=== PATIENT | male | born 1990 | race Caucasian/White ===

== ENCOUNTER 2016-09-28 10:53 | Emergency (ER) | payer SELFPAY ==
[~2016-09-28] VITALS: Ht 182.9 cm; Wt 61.0 kg
[~2016-09-28 10:53] MED LIST: OXYC-360 PO; Z.0.NO CURRENT MEDS
[2016-09-28 10:59] VITALS: BP 148/74; PULSE 67; RESP 16; TEMP 97.8; O2SAT 99
--- NOTE | 2016-09-28 11:34 | PD ---
HPI Chief Complaint: Musculoskeletal Complaint Time Seen by Provider: 11:20 Travel History International Travel<30 days: No Contact w/Intl Traveler<30days: No Traveled to known affect area: No History of Present Illness HPI 25-year-old male presents to the emergency room for evaluation of right-sided, anterior rib pain for the past 5 days. Patient states he and his just moved and he has been lifting multiple heavy boxes and furniture. He cannot remember any specific trauma or injury. Pain is worsened with any movement or deep breathing. Patient took Aleve this morning for her symptoms without significant relief. He has associated cough. He denies any other upper respiratory symptoms. Denies abdominal pain. PFSH Past Medical History Medical History: Denies Significant Hx Asthma: No Cardiomyopathy: No Tetanus Vaccination: > 5 Years Influenza Vaccination: No Past Surgical History Surgical History: No Previous Surgery Mastectomy: No Social History Alcohol Use: No Tobacco Use: Yes (1ppd) Substance Use: No Allergies-Medications (Allergen,Severity, Reaction): Coded Allergies: No Known Allergies (Verified , 09/28/16) Reported Meds & Prescriptions Reported Meds & Active Scripts Active Ibuprofen 600 Mg Tab 600 Mg PO Q8HR PRN Review of Systems Except as stated in HPI: all other systems reviewed are Neg Physical Exam Narrative GENERAL: Well-nourished, well-developed male in no acute distress. Afebrile. Ambulatory. SKIN: Focused skin assessment warm/dry. No erythema or ecchymosis. HEAD: Normocephalic. EYES: No scleral icterus. No injection or drainage. NECK: Supple, trachea midline. No JVD or lymphadenopathy. CARDIOVASCULAR: Regular rate and rhythm without murmurs, gallops, or rubs. RESPIRATORY: Breath sounds equal bilaterally. No accessory muscle use. CHEST: No obvious deformity or crepitus. No retractions or use of accessory muscles. Tenderness to palpation of rib #8. Data Data Last Documented VS Vital Signs Date Time Temp Pulse Resp B/P Pulse Ox O2 Delivery O2 Flow Rate FiO2 09/28/16 10:59 97.8 67 16 148/74 99 Orders Ribs, Uni (W/Exp Cxr-Min 3vw) (09/28/16 ) [facility] Medical Decision Making Medical Screen Exam Complete: Yes Emergency Medical Condition: Yes Medical Record Reviewed: Yes Differential Diagnosis Fracture, costochondritis, sprain, strain Narrative Course 25-year-old male presents to the emergency room for evaluation of right-sided anterior rib pain for the past 5 days. Pain started after lifting multiple heavy boxes and furniture. Physical exam reveals extreme tenderness to palpation of rib #8 at the costochondral joint. No crepitus or obvious deformity. Lung sounds clear and equal bilaterally. Vital signs stable. Rib x -ray is negative. This is costochondritis. Patient discharged with ibuprofen and told to follow-up with a primary care physician or return for worsening symptoms. He understands and agrees to plan. Diagnosis Primary Impression: Costochondritis, acute Referrals: Primary Care Physician Patient Instructions: Costochondritis (ED), General Instructions Additional Instructions: Rest and drink plenty of fluids. Continue taking deep breaths to avoid pneumonia. Take ibuprofen with food as directed, as needed for pain. Apply ice to the affected area for 20 minutes at a time, as needed for pain and swelling. Follow-up with a primary care physician. Return to the emergency room for worsening symptoms. Med/Other Pt SpecificInfo: Prescription(s) given Scripts Ibuprofen 600 Mg [id number] Mg PO Q8HR PRN (PAIN) #21 TAB Ref 0 Prov:Ruben Herrera MD 09/28/16 Disposition: 01 DISCHARGE HOME Condition: Stable Gabi Pena Sep 28, 2016 11:34
--- NOTE | 2016-09-28 12:07 | RADRPT ---
EXAM DATE/TIME: 09/28/2016 11:31 [place] COMPARISON: No previous studies available for comparison. INDICATIONS : Right anterior rib pain x 5 days after moving boxes & furniture. MEDICAL HISTORY : Smoker. SURGICAL HISTORY : None. ENCOUNTER: Initial ACUITY: 4 - 6 days PAIN SCORE: 10/10 LOCATION: Right anterior ribs FINDINGS: Multiple views of the right ribs were performed. There is no evidence of displaced fracture. No anita tructive lesions or areas of periosteal thickening are seen. Expiratory view of the chest is negativ e for pneumothorax. The mediastinal structures are midline. CONCLUSION: Negative for displaced rib fracture. Juan Garcia MD FACR on September 28, 2016 at 12:05 Board Certified Radiologist. This report was verified electronically.
[2016-09-28] MEDS ORDERED: IBUP-232 PO (12:10)
== END 2016-09-28 12:32 | disposition home or self-care (01) ==
LOC: PHEFT 10:53
DX: M94.0 Chondrocostal junction syndrome [Tietze] (principal); R05 Cough; F17.200 Nicotine dependence, unspecified, uncomplicated; X50.0XXA Overexertion from strenuous movement or load, initial encounter
CPT/HCPCS: 71101; 99283